=== PATIENT | female | born 1995 | race Caucasian/White ===

== ENCOUNTER 2017-11-06 09:31 | Outpatient (CLI) | payer BC, OTHER | END 2017-11-06 09:32 | disposition home or self-care (01) | LOC: BICULT 09:31 | PROVIDERS: ATTEND Family Medicine | DX: R10.2 Pelvic and perineal pain (principal) | CPT/HCPCS: 76856 ==

== ENCOUNTER 2017-11-21 08:19 | Outpatient (CLI) | payer BC ==
--- NOTE | 2017-11-21 10:22 | MRI ---
MRI ABDOMEN WITH AND WITHOUT CONTRAST: HISTORY: R93.2, abnormal liver CT; R19.7, diarrhea. COMPARISON: None. FINDINGS: No significant hepatic steatosis. No abnormal enhancing hepatic mass. No abnormality on the T1 or T2 weighted limiting sequence of the liver. No intrahepatic or extrahepatic biliary dilatation. Common bile duct appears normal. The spleen, pancreas, and kidneys are unremarkable. The adrenal glands are unremarkable. Aortic con tour is normal. Normal marrow signal of the spine. No hydronephrosis. No abnormal renal mass. No dilated loops of bowel in the upper abdomen. No adenopathy. IMPRESSION: Normal exam. POS: [facility]
== END 2017-11-21 08:20 | disposition home or self-care (01) ==
LOC: MRI 08:19
PROVIDERS: ATTEND Internal Medicine Gastroenterology
DX: E87.6 Hypokalemia (principal); R10.9 Unspecified abdominal pain; R19.7 Diarrhea, unspecified; R93.2 Abnormal findings on diagnostic imaging of liver and biliary tract; Z83.79 Family history of other diseases of the digestive system
CPT/HCPCS: 74183